=== PATIENT | male | born 2000 ===

== ENCOUNTER 2025-01-07 10:18 | Emergency (ER) | payer OTHER, SELFPAY ==
--- NOTE | ~2025-01-07 | XR_ITS ---
EXAMINATION: XR ANKLE, LEFT CLINICAL INFORMATION: painful twisted COMPARISON: None available. TECHNIQUE: AP, lateral, and mortise views of the left ankle. FINDINGS: There is moderate lateral malleolar soft tissue swelling. The ankle mortise and subtalar joints are normal. There is no visible acute fracture, dislocation or subluxation seen. There is no retrocalcaneal spurring. The soft tissues are normal. XR/XR ankle LT 2V IMPRESSION: Retrocalcaneal spurring. No visible acute fracture or dislocation seen. Electronically signed by: Tom Land MD 01/07/2025 11:05 AM EDT
[2025-01-07 10:36] VITALS: BP 136/77; PULSE 92; RESP 18; TEMP 36.9; O2SAT 97; BMI 34.2
--- NOTE | 2025-01-07 11:20 | ED_ITS ---
HPI - Extremity Injury (Lower) General Chief Complaint: Extremity Injury, Lower Stated Complaint: ? L Ankle Sprain Time Seen by Provider: 01/07/25 11:14 Source: patient Mode of arrival: ambulatory Limitations: no limitations History of Present Illness ED Provider: SHAWNA AMZA Narrative: 24 yo male healthy here with c/o stepping in a pothole and felt an inversion/twisting injury to L ankle with pop and swelling. Has not been able to fully bear weight. No other injuries, no prior surgery to that ankle. He has no numbness, weakness, tingling. He has dull aching moderate pain. complaint: ankle injury Onset (ago): hour(s) (today) Injury: Left: ankle Type of Injury: inversion Place: street/outdoors Severity: moderate Relieving factors: immobilization Exacerbating factors: weight bearing, movement and palpation Context: fall (stepped into pothole) Associated symptoms: snap/pop sensation and swelling Other symptoms: none Treatments prior to arrival: other (ice and borrowed someone's crutches) Related Data Previous Rx's ?Medication ?Instructions ?Recorded cyclobenzaprine 10 mg tablet 10 mg PO TID PRN muscle spasm #14 01/07/25 tabs ibuprofen 600 mg tablet 600 mg PO Q6H PRN pain #30 tabs 01/07/25 Allergies Allergy/AdvReac Type Severity Reaction Status Date / Time No Known Allergies Allergy Verified 01/07/25 10:39 Review of Systems Review of Systems: Constitutional : No Fever, No Chills ENT/Mouth : No Ear Pain, No Hoarseness, No sore throat Eyes: No Eye Pain, No Swelling, No Redness, No Foreign Body Cardiovascular : No Chest Pain, No SOB Respiratory : No Cough, No Dyspnea Gastrointestinal : No Nausea, No Vomiting, No Diarrhea, No abdominal Pain Genitourinary : No Dysuria, No Hematuria Musculoskeletal : positive joint pain, No Myalgias, pos Joint Swelling Skin : No Skin lacerations, No rash Neuro : No Weakness, No Numbness, No Loss of Consciousness, No Dizziness, No Headache All other systems reviewed and are negative [facility] Past Medical History Attestation statement: The following information was validated with the patient. Source: old records reviewed Medical History No pertinent past medical history Social History Social History (Updated 01/07/25 @ 11:23 by Shanta Aguirre DO) Patient Tobacco Use Status: Never used Tobacco Physical Exam Vital Signs: Vital Signs: Last Vital Signs Temp 98.5 F 01/07/25 10:36 Pulse 92 01/07/25 10:36 Resp 18 01/07/25 10:36 BP 136/77 01/07/25 10:36 Pulse Ox 97 01/07/25 10:36 O2 Del Method Room Air 01/07/25 10:36 BMI result Body Mass Index 34.2 Appearance: Alert. Oriented X3. No acute distress. Eyes: Pupils equal, round and reactive to light. ENT: Pharynx normal. Neck: Normal inspection. Neck supple. CVS: Normal heart rate and rhythm. Pulses normal. Respiratory: No respiratory distress. Breath sounds normal. Abdomen: atraumatic Skin: Skin warm and dry. Normal skin color. Extremities: L ankle lateral malleolus ttp but no achills ttp no foot pain NV intact bounding pulses, SILT intact, no pain on prox fibula Neuro: Oriented X 3. No motor deficit. No sensory deficit. CN2-12 intact Medical Decision Making Medical Decision Making MDM Narrative: 24 yo male no PMH here with isolated L ankle inversion injury on exam NV intact - he will need xray to rule out fracture, no proximal knee pain and no foot pain. Anticipate treatment with RICE, crutches and pending xray he will need splint or air cast Differential Diagnosis Differential Diagnoses: The differential diagnosis associated with the presentation includes sprain, strain, fracture Independent Interpretation I performed an independent interpretation of an: Plain X-Ray (no fx noted) Radiology Impression Discussion of test interpretation with radiology: I have reviewed the radiologist's reading. Prescription Management I considered prescription management with: Pain Medication and Other Procedures Orthopedic Splinting/Casting Injury #1: Side: left Lower Extremity Injury Location: ankle Lower Extremity Immobilizer: stirrup splint Other Orthopedic Equipment: crutches Discharge Plan Discharge Clinical Impression: Ankle sprain and strain Patient Disposition: Home, Self-Care Instructions: Ankle Sprain (ED), Ankle Stirrup Splint (ED) Additional Instructions: air cast for 7 days crutches for 5 days then start toe touch weight bearing from day 5 to 7 rest, ice every 2 hours for 15 min with cloth in between skin and ice pack, keep elevated, wear air cast return for worsening pain, swelling, numbness, tingling if not better in 7 to 10 days you need to follow up with your doctors no broken bones seen on xray today limit sports to 3 weeks may need ankle support over the counter Prescriptions: New cyclobenzaprine 10 mg tablet 10 mg PO TID PRN (Reason: muscle spasm) Qty: 14 0RF ibuprofen 600 mg tablet 600 mg PO Q6H PRN (Reason: pain) Qty: 30 0RF Stand Alone Forms: Work/School Release
[2025-01-07 11:39] VITALS: BP 136/77; PULSE 92; RESP 18; TEMP 36.9; O2SAT 97
== END 2025-01-07 11:32 | disposition home or self-care (01) ==
PROVIDERS: Emergency Provider Emergency Medicine
DX: S93.402A Sprain of unspecified ligament of left ankle, initial encounter (principal); M25.572 Pain in left ankle and joints of left foot; X50.1XXA Overexertion from prolonged static or awkward postures, initial encounter; Y93.9 Activity, unspecified; Y92.9 Unspecified place or not applicable; Y99.8 Other external cause status
CPT/HCPCS: 29515; 73600; 99283; 99284

== ENCOUNTER → 2025-01-07 10:55 | Outpatient (BNV) | payer OTHER, SELFPAY | PROVIDERS: Emergency Provider Emergency Medicine; Visit Provider Radiology Diagnostic Radiology | DX: M77.32 Calcaneal spur, left foot (principal) | CPT/HCPCS: 73600 ==